=== PATIENT | female | born 1985 | race African-American/Black ===

== ENCOUNTER → 2017-09-16 | Day surgery (SDC) | payer OTHER ==
[2017-09-15 10:25] VITALS: BMI 41.5
[~2017-09-16] MED LIST: ACETAMINOPHEN 1000 MG/100 ML VIAL (NON FORMULARY) IVPB ONE; ACETAMINOPHEN INJECTION 100 ML IVPB ONE; BUPIVACAINE HCL/PF 0.5% (5MG/ML) 10 ML VIAL IJ ONE; BUPIVACAINE HCL/PF 0.5% (5MG/ML) 10 ML VIAL ONE; DESFLURANE GAS 240 ML BOTTLE IH ONE; FAMOTIDINE 20 MG/50 ML IVPB 20 MG/50 ML MG IVPB SCH; HYDROmorphone HCL CARPU-JECT 1 MG/1 ML DISP.SYRIN IVPUSH PRN; LACTATED RINGERS SOLUTION 1,000 ML IV SCH; MIDAZOLAM HCL 2 MG/2 ML SINGLE DOSE VIAL ONE; NEOSTIGMINE METHYLSULFATE 0.5 MG/ML - 10 ML MDV ONE; ONDANSETRON 4 MG/2 ML VIAL IVPUSH PRN; PHENYLEPHRINE HCL 10 MG/1 ML SINGLE DOSE VIAL ONE; PROPOFOL 20 ML ONE; SODIUM CHLORIDE 1,000 ML IV SCH; VECURONIUM BROMIDE 10 MG VIAL ONE; ceFAZolin SODIUM 1 GM VIAL IVPB ONE; fentaNYL CITRATE 250 MCG/5 ML VIAL ONE; oxyCODONE HCL 5 MG TABLET PO PRN
--- NOTE | 2017-09-16 16:31 | HP ---
DATE OF ADMISSION: 09/16/2017 CHIEF COMPLAINT: Morbid obesity. HISTORY OF PRESENT ILLNESS: The patient is a 32-year-old woman with a history of morbid obesity for many years. She received a gastric band years ago and then had to have the band revised last year. She presents now with very little restriction, and on x-ray examination, there is seen to be a break in the tubing of the band requiring the band to be either revised or removed. PAST MEDICAL HISTORY: Noncontributory. PAST SURGICAL HISTORY: 1. Lap-Band. 2. Revision of Lap-Band. MEDICATIONS: Patient takes no medication. ALLERGIES: No known allergies. REVIEW OF SYMPTOMS: Neurologic: Within normal limits. Cardiovascular: Within normal limits. Gastrointestinal: Within normal limits. Musculoskeletal: Within normal limits. Genitourinary: Within normal limits. PHYSICAL EXAMINATION: General: Awake, alert, obese woman in no acute distress. HEENT: No masses palpated. Lungs: Clear bilaterally. Heart: Regular sinus rhythm. Abdomen: Well-healed trocar incisions. Soft, nontender on palpation. Extremities: Within normal limits. IMPRESSION: 1. Morbid obesity. 2. Malfunctioning implantable device secondary gastric band. PROCEDURE: Revision, possible removal and replacement of gastric band. Griselda [id number]
--- NOTE | 2017-09-16 16:34 | EKG ---
Test Reason : Blood Pressure : / mmHG Vent. Rate : 069 BPM Atrial Rate : 069 BPM P-R Int : 166 ms QRS Dur : 092 ms QT Int : 402 ms P-R-T Axes : 024 036 021 degrees QTc Int : 430 ms NORMAL SINUS RHYTHM NONSPECIFIC T WAVE ABNORMALITY ABNORMAL ECG NO PREVIOUS ECGS AVAILABLE Confirmed by NORMA DOUGHERTY, ARACELI ([id number]) on 09/16/2017 4:33:58 PM Referred By: NAIF THAYER Confirmed By:ARACELI GREEN MD
--- NOTE | 2017-09-16 17:35 | OP ---
Operative Note - Note: Operative Date: 09/16/17 Pre-Operative Diagnosis: rule out leak/obstruction Operation: EGD/upper endoscopy Post-Operative Diagnosis: Other (No leak/obstruction) Surgeon: Sam Noel Anesthesia: General Specimens Removed: None Estimated Blood Loss (mls): 0 Operative Report Dictated: Yes
--- NOTE | 2017-09-16 17:53 | OP ---
Operative Note - Note: Operative Date: 09/16/17 Pre-Operative Diagnosis: Mechanical complication of implantable device secondary to gastric band. Morbid Obesity Operation: Removal of gastric band plus sub-Q port component. Laparoscopic Lysis of Adhesions. Excision of fibrous capsule around stomach. Diagnostic Laparoscopy Findings: Gastric Band with severe slippage and dilated, incarcerated stomach above band Large amount of scar tissue from previous surgeries Implants: none Post-Operative Diagnosis: Same as Pre-op (Slipped gastric band;Abdominal adhesions; fibrous capsule around stomach) Surgeon: Sixto Seay Family Development Specialist: Sam Noel Anesthesia: General Specimens Removed: Gastric Band plus subcutaneous port component Estimated Blood Loss (mls): 30 Operative Report Dictated: Yes
[2017-09-16 19:24] VITALS: TEMP 98.5
[2017-09-16 19:43] VITALS: BP 94/48; PULSE 61
--- NOTE | 2017-09-16 19:52 | OP ---
DATE OF OPERATION: 09/16/2017 PREOPERATIVE DIAGNOSIS: 1. Mechanical complication of implantable device secondary to gastric band. 2. Abdominal pain. 3. Morbid obesity. POSTOPERATIVE DIAGNOSIS: 1. Mechanical complication of implantable device secondary to gastric band. 2. Slipped gastric pain. 3. Epigastric abdominal pain. 4. Morbid obesity. 5. Abdominal adhesions. 6. Fibrous capsule around the stomach. PROCEDURE PERFORMED: 1. Removal of gastric band with subcutaneous port component. 2. Laparoscopic lysis of adhesions. 3. Excision of fibrous capsule around the stomach. 4. Diagnostic laparoscopy. OPERATING SURGEON: Sixto Seay M.D. OUTREACH AND EDUCATION SOCIAL WORKER: Sam Noel M.D. ANESTHESIA: General. DESCRIPTION OF PROCEDURE: Patient was brought into the operating room, placed on the OR table in the supine position. All precautions were taken initially including padding to the back and the feet, and Venodyne boots were placed on both lower extremities. At that point, the operating room was prepped and draped in the usual manner. A Veress needle was placed in the left upper quadrant and a pneumoperitoneum was established. At that point, a number 5 trocar was placed under direct vision with a number 5 laparoscope into the abdominal cavity. Using this as a guide, initial findings showed that a very enlarged stomach, and anesthesia was asked to place the orogastric tube. The tube was placed, and placed on suction, and there was improvement, but still essentially the entire stomach was enlarged. Since the purpose of the operation was to find the band which had apparently a broken tubing and was ineffective, more ports would be needed. At that point, a number 12 and number 5 trocars were placed in the right upper quadrant, and a number 5 trocar below the left costal margin. At this point, a Stephanie liver retractor was placed in the epigastrium to retract the left lobe of the liver. The patient was then placed in 20 degree reverse Trendelenburg position by anesthesia. At that point, it was apparent that the lap band which had been placed previously had now slipped way down on the stomach almost to the antrum. This was causing the dilatation of both of the stomach above it. Attention was directed to the band, where the store administrative assistant surgeon retracted the stomach laterally as the operating surgeon was able to remove the adhesion and scar tissue off the band on the lesser curvature. This then extended toward the greater curvature, the store administrative assistant continued with retraction. Once the band was in full view, the band was then opened up, and the band around the stomach could now be pulled because of the tightness of the wrap. Therefore, the band was cut in two and both were removed from the stomach behind and sent off the field to pathology as specimens. Attention was now directed to the fibrous capsule around the stomach where the band had been. This fibrous capsule was grabbed on either side by the operating store administrative assistant surgeon as the operating surgeon placed a scissors underneath it to dissect it off the stomach wall and cut it. The fibrous capsule was cut from inferior to superior until once it had opened and peeled back on both sides, the entire stomach wall anteriorly now in full view and appeared more healthy. Attempts were now made to place another band. With the store administrative assistant surgeon retracting the stomach towards the patient's left side, the operating surgeon found the right woody. The peritoneum anterior to it was scored with electrocautery. However, the scar tissue from 2 previous bands being placed was massive in this area. An opening was tried to be made below the scar tissue, but this was lower than what was needed, otherwise the band would be too low on the stomach, causing another slippage. In the area where the scar tissue was densest, was the area where it had to be dissected. But because of the danger with the cordate lobe and especially the esophagus and stomach, it was decided to abort the procedure, and not to try to attempt another band placement. At this juncture, Dr. Noel stepped out of the OR and performed an upper endoscopy to rule out any injury to stomach wall. He found that the stomach wall was intact, but he did find inside chronic scarring probably from previous band placement. At this juncture, under direct vision, all trocars removed, and pneumoperitoneum released. The number 15 trocar site in the right upper quadrant was extended laterally and dissected with electrocautery down to the fibrous capsule on the port on the right anterior rectus muscle. The fibrous capsule was removed, and the port was then removed with the remaining tubing and sent off the field as specimen with the rest of the band. At that point, all trocar sites received 0.25% Marcaine, were closed with 4-0 Biosyn in subcuticular fashion. Where the right upper quadrant port was, this was first closed with 3-0 Vicryl in subcutaneous tissue followed by 4-0 Biosyn in subcuticular fashion. Dressings were applied, patient was awoken from anesthesia and sent out of the operating room into the recovery room in stable condition. Anesthesia on the case was general. Surgeon Dr. Seay, store administrative assistant Dr. Noel. Expected blood loss was 30 cc. Patient transferred to recovery room in stable condition. Griselda [id number]
--- NOTE | 2017-09-16 19:54 | OP ---
DATE OF OPERATION: 09/16/2017 SURGEON: Peter Noel M.D. PREOPERATIVE DIAGNOSIS: Rule out leak/ obstruction status post laparoscopic gastric band and port removal. POSTOPERATIVE DIAGNOSIS: No leak, no obstruction. PROCEDURE: Esophagogastroduodenoscopy/upper endoscopy. SPECIMEN: None. ESTIMATED BLOOD LOSS: None. ANESTHESIA: GET. REASON FOR PROCEDURE: This is a 32-year-old female who is undergoing a laparoscopic gastric band and port removal by Dr. Seay at the end of the case. There was a request for endoscopy. DESCRIPTION OF PROCEDURE: The EGD was performed and the endoscope inserted into the patient's mouth. The esophagus, GE junction, stomach were all inspected. There was noted to be inflammation at the level where the band was removed, but no leak or obstruction was noted. The stomach was then suctioned, and the endoscope removed. The rest of the procedure was continued. PETER NOEL M.D. [id number] MTDD
--- NOTE | 2017-09-20 15:11 | PATH ---
Surgical Pathology Report Patient Name: NICOLE LINCOLN [facility]. Rec. #: [id number] /Age/Gender: 1985 (Age: 32) / F Account: [id number] Location: [facility] SURGICAL Taken: 09/16/2017 Received: 09/17/2017 Reported: 09/20/2017 Physicians: Sixto Seay M.D. Specimen(s) Received REMOVED BAND GASTRIC PORT Clinical History Morbid obesity, break in band tubing Final Diagnosis REMOVED GASTRIC BAND AND PORT, GASTRIC BAND REVISION: GASTRIC BAND AND PORT. MACROSCOPIC DIAGNOSIS. Electronically Signed Princess Myers M.D. Gross Description Received fresh labeled "removed gastric band and port," are 2 white, rubbery portions of a disrupted gastric band measuring 11.0 x 1.8 x 0.8 cm and 2.0 x 1.8 x 0.8 cm. The smaller portion displays an 8.5 cm in length attached portion of tubing. Also received within the same container is a 3 cm in diameter x 1.4 cm in depth white, circular device, consistent with a port. The port displays a 43 cm in length portion of white tubing extending from one aspect. No soft tissue is present. No sections are submitted, gross only. 09/17/201709/17/2017
== END | disposition home or self-care (01) ==
LOC: JASU-SURG 13:11
PROVIDERS: ATTEND Surgery
PROC: 0DP60CZ Removal of Extraluminal Device from Stomach, Open Approach (ICD-10-PCS; 2017-09-16)
PROC: 0DV64CZ Restriction of Stomach with Extraluminal Device, Percutaneous Endoscopic Approach (ICD-10-PCS; 2017-09-16)
PROC: 0DJ08ZZ Inspection of Upper Intestinal Tract, Via Natural or Artificial Opening Endoscopic (ICD-10-PCS; 2017-09-16)
PROC: 0DP64CZ Removal of Extraluminal Device from Stomach, Percutaneous Endoscopic Approach (ICD-10-PCS; principal; 2017-09-16 14:45)
DX: T85.518A Breakdown (mechanical) of other gastrointestinal prosthetic devices, implants and grafts, initial encounter (principal); Y73.3 Surgical instruments, materials and gastroenterology and urology devices (including sutures) associated with adverse incidents; Y92.9 Unspecified place or not applicable; R10.9 Unspecified abdominal pain; E66.01 Morbid (severe) obesity due to excess calories; Z68.41 Body mass index [BMI] 40.0-44.9, adult; K95.09 Other complications of gastric band procedure; K31.89 Other diseases of stomach and duodenum; K66.0 Peritoneal adhesions (postprocedural) (postinfection); R10.13 Epigastric pain
CPT/HCPCS: 84703; 88300-TC; 93005; 93010; 94760; J0131

== ENCOUNTER 2021-04-07 08:35 | Inpatient (IN) | payer OTHER ==
[2021-04-07] MEDS ORDERED: ONDANSETRON 4 MG/2 ML VIAL ONE (11:13)
[2021-04-07] MEDS ORDERED: OXYTOCIN 10 UNIT/ML 10ML MDV ONE (12:14)
[2021-04-07] MEDS ORDERED: SENNOSIDES/DOCUSATE COMBO (SENNA PLUS) TABLET (UD) PO PRN (12:57)
[2021-04-07] MEDS ORDERED: oxyCODONE HCL 5 MG TABLET PO PRN (12:57)
[2021-04-07] MEDS ORDERED: SIMETHICONE 80 MG TAB.CHEW (FP) PO PRN (12:57)
[2021-04-07] MEDS ORDERED: IBUPROFEN 800 MG/8 ML IJ IVPB PRN (12:57)
[2021-04-07] MEDS ORDERED: ACETAMINOPHEN 1000 MG/100 ML VIAL IVPB PRN (12:57)
[2021-04-07] MEDS ORDERED: ACETAMINOPHEN 325 MG TABLET (FP) PO PRN (12:57)
[2021-04-07] MEDS ORDERED: ONDANSETRON 4 MG/2 ML VIAL IVPB PRN (12:57)
[2021-04-07] MEDS ORDERED: OXYTOCIN 20 UNITS in 0.9% NS 20 UNIT/1,000 ML INFUS.BAG IV SCH (13:00)
[2021-04-07 14:20] VITALS: BMI 59.2
[2021-04-07] MEDS ORDERED: CITRIC ACID/SODIUM CITRATE 30 ML UNIT-DOSE CUP PO ONE (14:30)
[2021-04-08 08:04] LABS: BASO % 0.2 % (0-2.0); HEMATOCRIT 29.7 % (32.4-45.2); HEMOGLOBIN 10.1 GM/dL (10.7-15.3); LYMPH % 8.3 % (8-40); MCH 30.5 pg (25.7-33.7); MEAN CELL VOLUME 89.7 fl (80-96); MONO % 7.2 % (3.8-10.2); NEUT % 83.3 % (42.8-82.8); PLATELET COUNT 339 10^3/uL (134-434); RBC 3.32 M/mm3 (3.60-5.2); RDW 14.7 % (11.6-15.6); WHITE BLOOD COUNT 10.5 K/mm3 (4.0-10.0)
[2021-04-08] MEDS: ENOXAPARIN NA (PORCINE) 40 MG/0.4 ML DISP.SYRIN SQ SCH (09:56)
[2021-04-08] MEDS: IBUPROFEN 600 MG TABLET (FP) PO PRN ×3 (09:56→23:08)
[2021-04-08] MEDS ORDERED: FLU VACC QS2021-22(6MOS UP)/PF 60 MCG/0.5 ML SYRINGE IM ONE (10:00)
[2021-04-08] MEDS ORDERED: BISACODYL 10 MG SUPP.RECT RC PRN (12:57)
[2021-04-09] MEDS: IBUPROFEN 600 MG TABLET (FP) PO PRN ×2 (06:11→10:31)
[2021-04-09] MEDS: ENOXAPARIN NA (PORCINE) 40 MG/0.4 ML DISP.SYRIN SQ SCH (10:31)
[2021-04-09 13:55] VITALS: BP 98/62; PULSE 88; TEMP 98.4
== END 2021-04-09 12:50 | disposition home or self-care (01) | DRG 788 ==
LOC: JLDR 08:35 → J3W 15:43
PROVIDERS: ADMIT Specialist; ATTEND Specialist
PROC: 10D00Z1 Extraction of Products of Conception, Low, Open Approach (ICD-10-PCS; principal; 2021-04-07)
DX: O34.219 Maternal care for unspecified type scar from previous cesarean delivery (principal); O99.214 Obesity complicating childbirth; E66.01 Morbid (severe) obesity due to excess calories; Z3A.38 38 weeks gestation of pregnancy; Z37.0 Single live birth
CPT/HCPCS: 36415; 85025; 88307-TC; 90686; G0008

== ENCOUNTER 2022-02-05 06:30 | Inpatient (IN) | payer OTHER ==
[2022-02-05] MEDS ORDERED: ELECTROLYTE-148 SOLN 500 ML IV SCH (07:00)
[2022-02-05] MEDS ORDERED: CITRIC ACID/SODIUM CITRATE 30 ML UNIT-DOSE CUP PO ONE (07:00)
[2022-02-05] MEDS ORDERED: ELECTROLYTE-148 SOLN 500 ML IV ONE (07:30)
[2022-02-05] MEDS ORDERED: OXYTOCIN 30 UNITS in 0.9% NS 30 UNIT/500 ML INFUS.BAG IVPB ONE (07:38)
[2022-02-05] MEDS ORDERED: morphine SULFATE/PF 1 MG/2 ML (2cc Syringe - QUVA) ONE (07:40)
[2022-02-05] MEDS ORDERED: SODIUM CHLORIDE 0.9% P/F 10 ML VIAL IJ ONE ×2 (07:40→07:47)
[2022-02-05] MEDS ORDERED: ONDANSETRON 4 MG/2 ML VIAL ONE ×2 (07:40→11:43)
[2022-02-05] MEDS ORDERED: PHENYLEPHRINE HCL 10 MG/1 ML SINGLE DOSE VIAL ONE (07:40)
[2022-02-05] MEDS ORDERED: KETOROLAC TROMETHAMINE 30 MG/1 ML VIAL ONE ×2 (07:40→09:36)
[2022-02-05] MEDS ORDERED: ePHEDrine SULFATE 50 MG/1 ML AMPULE ONE ×2 (07:40→07:56)
[2022-02-05 07:46] VITALS: BMI 53.6
[2022-02-05] MEDS ORDERED: OXYTOCIN 10 UNITS/ML VIAL ONE ×2 (08:17→09:33)
[2022-02-05] MEDS ORDERED: IBUPROFEN 800 MG/8 ML IJ IVPB PRN (09:54)
[2022-02-05] MEDS ORDERED: SENNOSIDES/DOCUSATE COMBO (SENNA PLUS) TABLET (UD) PO PRN (09:54)
[2022-02-05] MEDS ORDERED: ACETAMINOPHEN 325 MG TABLET (FP) PO PRN (09:54)
[2022-02-05] MEDS ORDERED: ONDANSETRON 4 MG/2 ML VIAL IVPB PRN (09:54)
[2022-02-05] MEDS ORDERED: oxyCODONE HCL 5 MG TABLET PO PRN (09:54)
[2022-02-05] MEDS ORDERED: ACETAMINOPHEN 1000 MG/100 ML BAG IVPB PRN (10:22)
[2022-02-05] MEDS ORDERED: OXYTOCIN 20 UNITS in 0.9% NS 20 UNIT/1,000 ML INFUS.BAG IV ONE (10:54)
[2022-02-05] MEDS: OXYTOCIN 20 UNITS in 0.9% NS 20 UNIT/1,000 ML INFUS.BAG IV SCH ×2 (11:30→20:35)
[2022-02-05] MEDS ORDERED: NALOXONE HCL 0.4 MG/ML VIAL ONE (11:43)
[2022-02-05] MEDS ORDERED: BUTORPHANOL TARTRATE 1 MG/ML VIAL ONE (12:04)
[2022-02-05] MEDS: BUTORPHANOL TARTRATE 1 MG/ML VIAL IVPUSH PRN ×2 (12:05→12:25)
[2022-02-05] MEDS: ACETAMINOPHEN 1000 MG/100 ML BAG IVPB PRN ×2 (12:26→22:27)
[2022-02-05] MEDS: CEFAZOLIN SODIUM 2 GM in DEXTROSE 5%-WATER 100 ML IVPB SCH ×2 (15:52→17:36)
[2022-02-05] MEDS: IBUPROFEN 600 MG TABLET (FP) PO PRN (20:39)
[2022-02-05] MEDS: SIMETHICONE 80 MG TAB.CHEW (FP) PO PRN (22:27)
[2022-02-06 09:03] LABS: BASO % 0.5 % (0-2.0); HEMATOCRIT 28.5 % (32.4-45.2); HEMOGLOBIN 9.8 GM/dL (10.7-15.3); LYMPH % 10.2 % (8-40); MCH 29.7 pg (25.7-33.7); MCHC 34.3 g/dl (32.0-36.0); MEAN CELL VOLUME 86.6 fl (80-96); MEAN PLT VOLUME 6.4 fl (7.5-11.1); NEUT % 79.3 % (42.8-82.8); PLATELET COUNT 381 10^3/uL (134-434); RDW 14.5 % (11.6-15.6); WHITE BLOOD COUNT 8.3 K/mm3 (4.0-10.0)
[2022-02-06] MEDS ORDERED: BISACODYL 10 MG SUPP.RECT RC PRN (09:54)
[2022-02-06] MEDS: ENOXAPARIN NA (PORCINE) 40 MG/0.4 ML DISP.SYRIN SQ SCH (10:18)
[2022-02-06] MEDS: SIMETHICONE 80 MG TAB.CHEW (FP) PO PRN (17:22)
[2022-02-06] MEDS: IBUPROFEN 600 MG TABLET (FP) PO PRN (20:19)
[2022-02-07] MEDS: IBUPROFEN 600 MG TABLET (FP) PO PRN ×2 (05:50→10:29)
[2022-02-07] MEDS: SIMETHICONE 80 MG TAB.CHEW (FP) PO PRN ×2 (05:50→10:29)
[2022-02-07] MEDS: ENOXAPARIN NA (PORCINE) 40 MG/0.4 ML DISP.SYRIN SQ SCH (10:29)
[2022-02-07 12:15] VITALS: BP 117/75; PULSE 70; RESP 18; TEMP 98.1
== END 2022-02-07 14:40 | disposition home or self-care (01) | DRG 540 ==
LOC: JLDR 06:30 → J3W 13:26
PROVIDERS: ADMIT Specialist; ATTEND Specialist
PROC: 10D00Z1 Extraction of Products of Conception, Low, Open Approach (ICD-10-PCS; principal; 2022-02-05)
PROC: 0UT70ZZ Resection of Bilateral Fallopian Tubes, Open Approach (ICD-10-PCS; 2022-02-05)
PROC: 0HB7XZZ Excision of Abdomen Skin, External Approach (ICD-10-PCS; 2022-02-05)
DX: O34.211 Maternal care for low transverse scar from previous cesarean delivery (principal); O99.214 Obesity complicating childbirth; E66.01 Morbid (severe) obesity due to excess calories; Z3A.38 38 weeks gestation of pregnancy; Z37.0 Single live birth; O75.89 Other specified complications of labor and delivery; L91.0 Hypertrophic scar; Z30.2 Encounter for sterilization
CPT/HCPCS: 36415; 80053; 85025; 85610; 85730; 86780; 86850; 86900; 86901; 86922; 87389; 88302-TC; 88304-TC; 88307-TC; C9803-CS; U0003; U0005